=== PATIENT | female | born 1995 | race Caucasian/White ===

== ENCOUNTER 2017-10-17 11:48 | Outpatient (CLI) | payer BC, OTHER ==
[2017-10-17 13:09] VITALS: BP 103/63; PULSE 93; RESP 17; TEMP 98.8
--- NOTE | 2017-10-18 07:08 | P.MSEPDOC ---
Presenting Problems - Arrival Data Date of Arrival on Unit: 10/17/17 Time of Arrival on Unit: 11:48 Mode of Transport: Ambulatory - Complaint OB-Reason for Admission/Chief Complaint: Rule Out PROM Comment: pt reports feeling gush of clear fluid around 0630 this am while walking out to car Medical History - Information : 2 Para: 0 Term: 0 : 0 Abortions: Spontaneous or Elective: 0 Number of Living Children: 0 - Gestational Age Gestational Age by JOSEPH (wks/days): 26 Weeks and 0 Days Review of Systems - Review of Systems Constitutional: No problems Breast: No problems ENT: No problems Cardiovascular: No problems Respiratory: No problems Gastrointestinal: No problems Genitourinary: No problems Musculoskeletal: No problems Neurological: No problems Skin: No problems Vital Signs - Temperature Temperature: 98.8 F Temperature Source: Temporal Artery Scan - Pulse Right Brachial Pulse Rate: 93 Pulse Assessment Method: Automatic Cuff - Respirations Respiratory Rate: 17 Oxygen Delivery Method: Room Air O2 Sat by Pulse Oximetry: 98 - Blood Pressure Right Arm Blood Pressure: 103/63 Blood Pressure Mean: 76 Blood Pressure Source: Automatic Cuff Medical Screen Scoring (Pre) - Cervical Exam Dilation: 0 cm = 0 Membranes: Intact - Uterine Contractions Frequency: N/A Duration: N/A Intensity: N/A - Maternal Vital Signs Maternal Temperature: N/A Maternal Blood Pressure: N/A Signs of Preeclampsia: N/A Maternal Respirations: N/A - Pain Assessment Pain Scale Used: Numeric (1 - 10) Pain Intensity: 0 - Maternal Trauma Maternal Trauma: N/A - Assessment Baseline FHR: 145 Position: N/A Station: N/A - Total Score Total Score (Pre): 0 - Level of Risk Level of Risk: Low (0-5) Physician Notification (Pre) - Physician Notified Physician Notified Date: 10/17/17 Physician Notified Time: 12:32 Physician/Practitioner Notifed:: Dr noguera Spoke With: Dr Noguera New Order Received: Yes (dc home) - Notification Comment Comment: pt dcd home, denies questions, reports + fm, has appt 10/[address] mckay Disposition - Disposition OB Disposition: Discharge to home, Written follow up instructions reviewed Discharge Date: 10/17/17 Discharge Time: 12:40 I agree with the RN Medical Screening Exam: Yes Risk & Benefit of care provided described in d/c instruction: Yes Diagnosis: FALSE LABOR AT OR AFTER 37 COMPLETED WEEKS OF GESTATION
== END 2017-10-17 12:40 | disposition home or self-care (01) ==
LOC: FBPOP 11:48
PROVIDERS: ATTEND Obstetrics & Gynecology
DX: O47.1 False labor at or after 37 completed weeks of gestation (principal); Z3A.26 26 weeks gestation of pregnancy
CPT/HCPCS: 84112; 99213

== ENCOUNTER 2018-01-16 12:03 | Outpatient (CLI) | payer OTHER ==
[2018-01-16 12:55] VITALS: BP 119/74; PULSE 123; RESP 18; TEMP 98
[2018-01-16 13:15] LABS: Appearance,Urine Cloudy (Clear); Bacteria,Urine Rare /hpf; Bilirubin,Urine Negative (Negative); Blood,Urine Negative (Negative); Color,Urine Yellow; Glucose,Urine (UA) Negative (Negative); Ketones,Urine 1+ (Negative); Leukocyte Esterase,Urine Large (Negative); Mucus,Urine Rare /hpf; Nitrite,Urine Negative (Negative); Protein,Urine Trace (Negative); RBC,Urine <1 /hpf (0-5); Specific Gravity,Urine 1.018 (1.001-1.035); Squamous Epithelial Cell,Urine 32 /hpf (0-4); Urobilinogen,Urine <2.0 mg/dL (<2.0); WBC,Urine 10 /hpf (0-5)
--- NOTE | 2018-01-16 20:38 | P.MSEPDOC ---
Presenting Problems - Arrival Data Date of Arrival on Unit: 01/16/18 Time of Arrival on Unit: 12:03 Mode of Transport: Ambulatory - Complaint OB-Reason for Admission/Chief Complaint: Possible Onset of Labor, Rule Out SROM Medical History - Information : 2 Para: 0 Term: 0 : 0 Abortions: Spontaneous or Elective: 0 Number of Living Children: 0 - Gestational Age Gestational Age by JOSEPH (wks/days): 39 Weeks and 0 Days Review of Systems - Review of Systems Constitutional: No problems Breast: No problems ENT: No problems Cardiovascular: No problems Respiratory: No problems Gastrointestinal: No problems Genitourinary: No problems Musculoskeletal: No problems Neurological: No problems Skin: No problems Vital Signs - Temperature Temperature: 98.0 F Temperature Source: Temporal Artery Scan - Pulse Right Brachial Pulse Rate: 123 Pulse Assessment Method: Automatic Cuff - Respirations Respiratory Rate: 18 Oxygen Delivery Method: Room Air - Blood Pressure Right Arm Blood Pressure: 119/74 Blood Pressure Mean: 89 Blood Pressure Source: Automatic Cuff Medical Screen Scoring (Pre) - Cervical Exam Dilation: 1-3 cm = 1 Effacement: More than 50% = 2 Membranes: Intact - Uterine Contractions Frequency: > 5 minutes apart = 1, Scheduled / = 6 Duration: > 40 seconds = 2 Intensity: N/A - Maternal Vital Signs Maternal Temperature: N/A Maternal Blood Pressure: N/A Signs of Preeclampsia: N/A Maternal Respirations: N/A - Pain Assessment Pain Location and Character: Back, Abdomen, Pelvic Pain Scale Used: Numeric (1 - 10) Pain Intensity: 5 Pain Description: *Acute Pain Radiation Location: none Pain Frequency: Intermittent Pain Behavior: Vocalization Pain Aggravating Factors: Activity - Maternal Trauma Maternal Trauma: N/A - Assessment Baseline FHR: 130 Heart Rate - NICHD Category: Category I (Normal) = 0 NST: Reactive Position: N/A Station: N/A - Total Score Total Score (Pre): 12 - Level of Risk Level of Risk: High (10+) Physician Notification (Pre) - Physician Notified Physician Notified Date: 01/16/18 Physician Notified Time: 12:40 Physician/Practitioner Notifed:: Dr. Johnson Spoke With: Dr. Johnson New Order Received: Yes - Notification Comment Comment: send ua, recheck cervix in one hour, if no change may discharge home and follow up on Friday for scheduled section for breech presentation Medical Screen Scoring (Post) - Cervical Exam Dilation: 1-3 cm = 1 Membranes: Intact - Uterine Contractions Frequency: > 5 minutes apart = 1 Duration: > 40 seconds = 2 Intensity: N/A - Maternal Vital Signs Maternal Temperature: N/A Maternal Blood Pressure: N/A Signs of Preeclampsia: N/A Maternal Respirations: N/A - Maternal Trauma Maternal Trauma: N/A - Assessment Heart Rate - NICHD Category: Category I (Normal) = 0 - Total Score Total Score (Post): 4 - Post Treatment Level of Risk Post Treatment Level of Risk: Low (0-5) Disposition - Disposition OB Disposition: Discharge to home, Written follow up instructions reviewed Discharge Date: 01/16/18 Discharge Time: 13:45 I agree with the RN Medical Screening Exam: Yes Risk & Benefit of care provided described in d/c instruction: Yes Diagnosis: FALSE LABOR AT OR AFTER 37 COMPLETED WEEKS OF GESTATION
== END 2018-01-16 13:45 | disposition home or self-care (01) ==
LOC: FBPOP 12:03
PROVIDERS: ATTEND Obstetrics & Gynecology
DX: O47.1 False labor at or after 37 completed weeks of gestation (principal); Z3A.39 39 weeks gestation of pregnancy
CPT/HCPCS: 59025; 84112; 81001; G0463; 99213

== ENCOUNTER → 2018-10-20 | Outpatient (CLI) | payer OTHER ==
[2018-10-20 17:29] LABS: HCT 35.8 % (34.0-46.0); HGB 12.3 gm/dL (11.4-16.0); MCH 29.7 pg (25.0-35.0); MCHC 34.5 g/dL (31.0-37.0); MCV 86.1 fL (80.0-100.0); Mean Platelet Volume 6.8; Platelet Count 302 k/uL (150-450); RBC 4.15 m/uL (3.80-5.40); RDW 13.1 % (11.5-15.5); WBC 7.4 k/uL (3.8-10.6)
[2018-10-20 17:45] LABS: Glucose 83 mg/dL (74-99)
[2018-10-21 05:38] LABS: Toxoplasma Antibody (IgG) <3.0 IU/mL (<7.2); Toxoplasma Antibody (IgM) 4.1 AU/mL (<8.0)
[2018-10-21 05:52] LABS: HIV 1 AB Non-Reactive (Non-Reactive); HIV AB P24 Non-Reactive (Non-Reactive); HIV P24 AG Non-Reactive (Non-Reactive)
--- NOTE | 2018-10-21 07:21 | US ---
EXAMINATION TYPE: Transabdominal DATE OF EXAM: 10/20/2018 4:20 PM COMPARISON: NONE CLINICAL HISTORY: Z36 confirm dates. EXAM PERFORMED: Transabdominal (TA) EXAM MEASUREMENTS: GESTATIONAL AGE / DATING Physician Established: Not yet established Dates by LMP: LMP unsure Dates by First Scan: No previous this is first scan Dates by Current Scan for: (12 weeks/0 days) EDC: 05/04/2019 MATERNAL ANATOMY Uterus: 11.8 x 6.4 x 8.9 cm Right Ovary: 5.1 x 2.5 x 2.1 cm Left Ovary: 3.0 x 2.0 x 1.5 cm Post CDS / Adnexa: wnl Presence of free fluid: No Presence of corpus luteal cyst: Cystic area right ovary measuring 2.6 x 2.9 x 2.4 cm Presence of subchorionic bleed: No GESTATION / SURVEY CRL: 5.3 cm (12 weeks/0 days) Heart Rate: 160 bpm Rhythm: Normal IUP: Viable IUP Nuchal Translucency 10-14wks (normal less than 3mm): 1.5 mm Date of LMP: LMP unknown Beta HcG (if available): Not available at this time Viable IUP with an JOSEPH of 05/04/2019 IMPRESSION: Single viable intrauterine has noted.
== END | disposition home or self-care (01) ==
LOC: RADUSWWP 16:00
PROVIDERS: ATTEND Obstetrics & Gynecology
DX: Z36.9 Encounter for antenatal screening, unspecified (principal); Z34.81 Encounter for supervision of other normal pregnancy, first trimester; Z3A.12 12 weeks gestation of pregnancy
CPT/HCPCS: 76801; 82565; 82947; 85027; 86762; 86777; 86778; 86780; 86850; 86900; 86901; 87340; 87390

== ENCOUNTER 2019-04-29 06:01 | Inpatient (IN) | payer OTHER ==
[2019-04-27 16:21] VITALS: BMI 24.7
--- NOTE | 2019-04-28 19:36 | P.HPOB ---
History of Present Illness H&P Date: 04/28/19 Chief Complaint: Scheduled repeat section This is a 23 y.o. female, 3, para 1, with an estimated date of confinement of 05/04/2019, estimated gestational age of 39-5/7 weeks, who presents for scheduled repeat section. She admits to good move ment and has irregular contractions. Previous section was for breech presentation and she denies vaginal after . labs: GC/Chlamydia/trichomonas-neg HIV-NR Toxoplasma-neg Blood type-O+ Antibody screen-neg Random glucose-83 Hemoglobin-12.3 Hepatitis B surface antigen-NR Rubella-immune Syphilis antibody-NR 1 HR. GTT-109 GBS-neg OB Hx: . Hx of 1 miscarriage and 1 section. 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 ctxs) Genitourinary: Reports pelvic pain, Reports Musculoskeletal: Reports low back pain Integumentary: Denies pruritus, Denies rash Neurological: Denies numbness, Denies weakness Past Medical History Past Medical History: No Reported History History of Any Multi-Drug Resistant Organisms: None Reported Past Surgical History: Section Past Anesthesia/Blood Transfusion Reactions: No Reported Reaction Past Psychological History: No Psychological Hx Reported Smoking Status: Former smoker Past Alcohol Use History: None Reported Past Drug Use History: None Reported - Past Family History Mother Family Medical History: No Reported History Father Family Medical History: Hypertension Medications and Allergies Home Medications Medication Instructions Recorded Confirmed Type Pnv,Calcium 72/Iron/Folic Acid 1 tab PO DAILY 10/17/17 04/29/19 History [ Plus Tablet] Allergies Allergy/AdvReac Type Severity Reaction Status Date / Time No Known Allergies Allergy Verified 04/29/19 06:12 Exam Osteopathic Statement: *. No significant issues noted on an osteopathic structural exam other than those noted in the History and Physical/Consult. HEENT: within normal limits Heart: regular rate and rhythm Lungs: clear to auscultation bilaterally Abd: soft, heart tones: 140s by doppler Cervix: 1cm/70%/0 Extremities: neg. Stevie Results Result Diagrams: 04/29/19 06:15 Assessment and Plan (1) 39 weeks gestation of Current Visit: No Status: Acute Code(s): Z3A.39 - 39 WEEKS GESTATION OF SNOMED Code(s): 33981956 (2) Previous section Current Visit: No Status: Acute Code(s): Z98.891 - HISTORY OF UTERINE SCAR FROM PREVIOUS SURGERY SNOMED Code(s): 974493590 Plan: Proceed with repeat section. I have discussed the risks, benefits, and alternative therapies for the above- mentioned procedure and for both sedation/anesthesia as well as necessary blood products administration, if indicated, as they pertain to this patient. The patient has indicated her understanding and acceptance of the risks and procedures discussed.
[2019-04-29] MEDS ORDERED: LACTATED RINGERS 1,000 ML IV ONE (06:12)
[2019-04-29] MEDS ORDERED: LIDOCAINE 1% 20 ML VIAL (10MG/ML) FOR IV START INTRADERMA PRN (06:12)
[2019-04-29] MEDS ORDERED: CITRIC ACID-SODIUM CITRATE 15 ML CUP PO ONE (06:12)
[2019-04-29 06:29] LABS: Basophils % (A) 0 %; Eosinophils # (A) 0.1 k/uL (0-0.7); Eosinophils % (A) 2 %; HCT 35.8 % (34.0-46.0); Lymphocytes % (A) 24 %; MCH 29.6 pg (25.0-35.0); MCHC 33.4 g/dL (31.0-37.0); MCV 88.7 fL (80.0-100.0); Mean Platelet Volume 6.5; Monocytes # (A) 0.5 k/uL (0-1.0); Monocytes % (A) 7 %; Neutrophils # (A) 5.3 k/uL (1.3-7.7); Neutrophils % (A) 65 %; Platelet Count 374 k/uL (150-450); RBC 4.03 m/uL (3.80-5.40); RDW 12.6 % (11.5-15.5); WBC 8.2 k/uL (3.8-10.6)
[2019-04-29] MEDS: LACTATED RINGERS 1,000 ML IV SCH ×2 (07:09→12:02)
[2019-04-29] MEDS ORDERED: ONDANSETRON 4 MG/2 ML VIAL ONE (07:54)
[2019-04-29] MEDS ORDERED: MORPHINE SULFATE (PF) 0.3 MG/0.3 ML SYR ONE (07:54)
[2019-04-29] MEDS ORDERED: KETOROLAC 30 MG/ML 1 ML VIAL ONE (07:54)
[2019-04-29] MEDS ORDERED: DEXAMETHASONE SOD PHOS (MDV) 100 MG/10 ML VIAL ONE (07:54)
[2019-04-29] MEDS ORDERED: fentaNYL (PF) 50 MCG/ML 2 ML AMP ONE (07:54)
[2019-04-29] MEDS ORDERED: diphenhydrAMINE 50 MG/ML 1 ML VIAL ONE (07:54)
[2019-04-29] MEDS ORDERED: NALBUPHINE 10 MG/ML (1 ML AMP) ONE (07:54)
[2019-04-29] MEDS ORDERED: OXYTOCIN 10 UNIT/ML 1 ML VIAL ONE (07:54)
--- NOTE | 2019-04-29 08:37 | P.OP ---
Date of Procedure: 04/29/19 Preoperative Diagnosis: 1. Intrauterine at 39-2/7 weeks. 2. History of previous section. Postoperative Diagnosis: Same Procedure(s) Performed: Repeat low transverse section Anesthesia: spinal (Duramorph) Surgeon: Smiley Johnson Caddymaster #1: José Antonio Noguera Estimated Blood Loss (ml): 600 Pathology: none sent Condition: stable Disposition: floor Indications for Procedure: This is a 23-year-old female 3 para 1 at 39-2/7 weeks who presented for scheduled repeat section. She declines vaginal after . Operative Findings: A viable female infant is noted with scores of 7 at 1 minute and 9 at 5 minutes and infant weight of 6 lbs. 12 oz. Nuchal cord times one was noted. Normal uterus tubes and ovaries are noted. Description of Procedure: The patient is taken to the operating room where she is placed in the dorsal supine position with leftward tilt after spinal Duramorph anesthesia is given. She is prepped and draped in the normal sterile fashion. Skin was tested and found to be adequately anesthetized. A Pfannenstiel skin incision was made with a scalpel through the previous laparotomy scar removing the old keloid scar. A second knife was used to carry the incision down to the underlying layer of fascia. The fascia was nicked in the midline with a scalpel and then extended laterally bilaterally with Ornelas scissors. The anterior lip of the fascia was grasped with 2 Cailin clamps and then dissected off the underlying rectus muscle in the midline with Ornelas scissors. The inferior aspect of the fascial incision was grasped with 2 Cailin clamps and dissected off the underlying rectus muscle and the midline with Ornelas scissors. Next the peritoneum layer was tented up with 2 hemostats and then entered sharply with the scalpel. The incision is extended superiorly and inferiorly with Metzenbaum scissors. Next a DeLee retractor is placed. The vesicouterine peritoneum is entered sharply with Metzenbaum scissors and extended laterally bilaterally with Metzenbaum scissors and then the bladder flap is pushed inferiorly. The lower uterine segment is incised in transverse fashion with the scalpel and then bluntly entered with a hemostat. Clear fluid is noted. The incision was then extended laterally bilaterally with 2 fingers. Next the infant's head is delivered through the incision. Nose and mouth are bulb suctioned. Nuchal cord times one was reduced around the 's head. The remainder of the infant is easily delivered and placed on mother's abdomen. Cord is clamped and cut. Infant is taken to warmer by nursing staff. Uterine fundus is gently massaged and placenta is delivered manually. Uterus is exteriorized and cleared of all clots and debris. Uterine incision is closed with 0 Vicryl suture in a running locked fashion. A second layer of 0 Vicryl suture is used in a running fashion for hemostasis. Once adequate hemostasis as assured, the vesicouterine peritoneum is reapproximated with 2-0 Vicryl suture in a running fashion. Posterior cul-de-sac is suctioned of all clots and debris. Uterus is returned to the abdomen. Incision is noted to be hemostatic. Peritoneal layer is closed with 0 Vicryl suture in a running fashion. Muscle layer is reapproximated with 0 Vicryl suture in interrupted fashion. Fascia layer is then closed with 0 PDS suture with 2 sutures meeting in the midline and the knots buried in either side and in the midline. The subcutaneous tissue was then closed with 2-0 Vicryl suture. Skin layer was then closed with walter. All sponge and needle counts are correct. The patient is taken to recovery room in stable condition.
[2019-04-29] MEDS ORDERED: diphenhydrAMINE 50 MG CAP PO PRN (09:22)
[2019-04-29] MEDS ORDERED: LANOLIN CREAM 5 GM TUBE TOPICAL PRN (09:22)
[2019-04-29] MEDS ORDERED: diphenhydrAMINE 25 MG CAP PO PRN (09:22)
[2019-04-29] MEDS ORDERED: diphenhydrAMINE 50 MG/ML 1 ML VIAL IVP PRN ×2 (09:22)
[2019-04-29] MEDS ORDERED: METOCLOPRAMIDE 5 MG/ML 2 ML VIAL IVP PRN (09:22)
[2019-04-29] MEDS ORDERED: ONDANSETRON 4 MG/2 ML VIAL IVP PRN (09:22)
[2019-04-29] MEDS ORDERED: ZOLPIDEM 5 MG TAB PO PRN (09:22)
[2019-04-29] MEDS ORDERED: ACETAMINOPHEN TAB 325 MG TAB PO PRN (09:22)
[2019-04-29] MEDS ORDERED: NALOXONE 0.4 MG/ML 1 ML VIAL IV PRN (09:22)
[2019-04-29] MEDS ORDERED: OXYTOCIN 20 UNITS/1000 ML NS 1,000 ML IV SCH (09:22)
[2019-04-29] MEDS ORDERED: SIMETHICONE 80 MG CHEWABLE PO PRN (09:22)
[2019-04-29] MEDS: KETOROLAC 30 MG/ML 1 ML VIAL IVP PRN (15:28)
[2019-04-29] MEDS: SENNOSIDES-DOCUSATE SODIUM 1 EACH TAB PO SCH (19:36)
[2019-04-30] MEDS: KETOROLAC 30 MG/ML 1 ML VIAL IVP PRN (02:41)
[2019-04-30 07:11] LABS: Basophils % (A) 0 %; Eosinophils % (A) 0 %; HCT 28.7 % (34.0-46.0); Lymphocytes # (A) 2.1 k/uL (1.0-4.8); Lymphocytes % (A) 17 %; MCH 30.1 pg (25.0-35.0); MCHC 33.7 g/dL (31.0-37.0); MCV 89.4 fL (80.0-100.0); Mean Platelet Volume 7.1; Monocytes # (A) 1.2 k/uL (0-1.0); Monocytes % (A) 10 %; Neutrophils # (A) 8.9 k/uL (1.3-7.7); Neutrophils % (A) 71 %; Platelet Count 312 k/uL (150-450); RBC 3.21 m/uL (3.80-5.40); RDW 12.8 % (11.5-15.5); WBC 12.5 k/uL (3.8-10.6)
--- NOTE | 2019-04-30 07:11 | P.PNOBGPC ---
Subjective - Subjective Principal diagnosis: Status post repeat section postoperative day #1 Interval history: Patient is doing well. She is passing flatus but no bowel movement yet. She is tolerating regular diet. Her pain is fairly well controlled. She is breast- feeding. Patient reports: Reports appetite normal, Reports voiding normally, Reports pain well controlled, Reports ambulating normally : doing well, nursing well Objective - Vital Signs Latest vital signs: Vital Signs Temp Pulse Resp BP Pulse Ox 04/30/19 04:00 97 18 106/62 04/29/19 23:05 97.7 F 74 18 94/59 99 04/29/19 20:00 98.1 F 93 18 104/64 99 04/29/19 16:00 97.8 F 92 16 103/71 99 04/29/19 12:00 98.2 F 84 16 109/67 04/29/19 10:40 96.7 F L 82 16 100/66 100 04/29/19 10:10 69 16 96/63 100 04/29/19 09:40 97.5 F L 86 16 99/61 100 04/29/19 09:25 86 16 117/68 04/29/19 09:10 78 16 105/65 100 04/29/19 08:55 98 16 108/56 99 04/29/19 08:40 96.3 F L 100 16 107/71 99 Intake and Output 04/29/19 04/30/19 04/30/19 22:59 06:59 14:59 Output Total 900 2100 Balance -900 -2100 Output: Urine 900 2100 Uretheral (Mortensen) 500 Other: Voiding Method Toilet # Voids 1 1 - Exam Extremities: Present: normal. Absent: tenderness Abdomen: Present: normal appearance, soft (Positive bowel sounds 4). Absent: distention, tenderness Incision: Present: normal, dry, intact. Absent: erythematous Uterus: Present: normal, firm. Absent: tenderness Assessment and Plan Assessment: Status post repeat low transverse section postoperative day #1 (1) 39 weeks gestation of Current Visit: No Status: Acute Code(s): Z3A.39 - 39 WEEKS GESTATION OF SNOMED Code(s): 34781523 (2) Previous section Current Visit: No Status: Acute Code(s): Z98.891 - HISTORY OF UTERINE SCAR FROM PREVIOUS SURGERY SNOMED Code(s): 336552292 Plan: Continue postoperative care. Will switch to oral pain medication. Anticipate discharge home tomorrow.
[2019-04-30 07:15] LABS: HGB 9.7 gm/dL (11.4-16.0)
[2019-04-30] MEDS: SENNOSIDES-DOCUSATE SODIUM 1 EACH TAB PO SCH ×2 (08:03→19:42)
[2019-04-30] MEDS: HYDROcodone/APAP 5-325MG 1 EACH TAB PO PRN (11:32)
[2019-04-30] MEDS: IBUPROFEN 600 MG TAB PO PRN ×2 (13:57→19:42)
--- NOTE | 2019-04-30 15:13 | P.PN ---
Progress Note - Text Progress Note Date: 04/30/19 Patient was seen and examined at bedside at 6:30 AM. She is postop day 1 from with spinal with Duramorph. Pain score 5/10 today. She does report some mild itching. Denies nausea and vomiting. She has been out of bed. Denies motor or sensory deficits.
[2019-04-30] MEDS: HYDROcodone/APAP 7.5-325MG 1 EACH TAB PO PRN ×2 (15:48→23:18)
--- NOTE | 2019-04-30 17:57 | P.PN ---
Progress Note - Text Progress Note Date: 04/30/19 Pt seen at 6:30 am. Patient without complaints. Pain controlled. Denies headache. Ambulating without paresthesia or weakness. Pruritis controlled. VSS Back spinal site c/d A/P POD #1 s/p with spinal duramorph - doing well
[2019-05-01] MEDS: IBUPROFEN 600 MG TAB PO PRN (02:35)
--- NOTE | 2019-05-01 06:09 | P.PNOBGPC ---
Subjective - Subjective Patient reports: Reports appetite normal, Reports voiding normally, Reports pain well controlled, Reports ambulating normally : doing well Objective - Vital Signs Latest vital signs: Vital Signs Temp Pulse Resp BP Pulse Ox 04/30/19 23:42 97.7 F 92 16 112/67 04/30/19 15:57 97.5 F L 88 18 101/66 99 04/30/19 08:00 97.9 F 98 16 95/57 98 - Exam Lungs: bilateral: normal Chest: Normal S1, Normal S2 Extremities: Present: normal Abdomen: Present: normal appearance, soft. Absent: distention, tenderness Incision: Present: normal, dry, intact Uterus: Present: normal, firm - Labs Labs: Abnormal Lab Results - Last 24 Hours (Table) 04/30/19 Range/Units 06:36 WBC 12.5 H (3.8-10.6) k/uL RBC 3.21 L (3.80-5.40) m/uL Hgb 9.7 L D (11.4-16.0) gm/dL Hct 28.7 L (34.0-46.0) % Neutrophils # 8.9 H (1.3-7.7) k/uL Monocytes # 1.2 H (0-1.0) k/uL Assessment and Plan Assessment: Postoperative day #2. Patient is resting without complaints and wishes to go home. Vital signs are stable she is afebrile. Her incision is intact and dry. Patient's tolerating regular diet, ambulating, urinating without difficulty. My impression is this is a normal postoperative course. Plan is to continue routine postoperative care discharge home today. (1) Previous delivery, delivered Current Visit: Yes Status: Acute Code(s): O34.219 - MATERNAL CARE FOR UNSP TYPE SCAR FROM PREVIOUS DEL SNOMED Code(s): 107038968
--- NOTE | 2019-05-01 06:13 | P.DS ---
Providers Date of admission: 04/29/19 06:01 Expected date of discharge: 05/01/19 Attending physician: Smiley Johnson Primary care physician: Smiley Johnson - Discharge Diagnosis(es) (1) Previous delivery, delivered Current Visit: Yes Status: Acute Hospital Course: Please see dictated H&P for intimate details of this patient's admission. Brief summary is a pleasant 23-year-old 3 para 1 female 39-2/7 weeks gestation admitted to labor and delivery for elective repeat section. Patient is admitted undergoes repeat low transverse section for a viable female . Please see dictated delivery note. By postoperative #2 patient's felt be stable for discharge home follow up with Dr. Johnson in 1 week. Procedures: Repeat low transverse section Patient Condition at Discharge: Good Plan - Discharge Summary Discharge Rx Participant: Yes New Discharge Prescriptions: New Ibuprofen [Motrin] 600 mg PO Q6HR PRN #60 tab PRN Reason: Mild Pain Or Fever >= 100.5 HYDROcodone/APAP 5-325MG [[place] 5-325] 1 each PO Q4HR PRN #30 tab PRN Reason: Moderate Pain Continue Pnv,Calcium 72/Iron/Folic Acid [ Plus Tablet] 1 tab PO DAILY Discharge Medication List Pnv,Calcium 72/Iron/Folic Acid [ Plus Tablet] 1 tab PO DAILY 10/17/17 [History] HYDROcodone/APAP 5-325MG [[place] 5-325] 1 each PO Q4HR PRN #30 tab 04/30/19 [Rx] Ibuprofen [Motrin] 600 mg PO Q6HR PRN #60 tab 04/30/19 [Rx] Follow up Appointment(s)/Referral(s): Smiley Johnson DO [Primary Care Provider] - 05/07/19 9:00 am (Please see Dr. Johnson on June 15 at 11:30 for a visit.) Patient Instructions/Handouts: (DC) Activity/Diet/Wound Care/Special Instructions: Instructions 1. Do not begin any exercise program for 3 weeks. 2. Do not resume sexual relations for 3 weeks or longer if uncomfortable. 3. You may take tub baths or showers at any time. 4. You may use tampons if desired after 3 weeks. 5. Keep the area of episiotomy (stitches) clean and dry. 6. If you are not nursing, wear a good fitting, supportive bra during the day and limit fluid intake for at least 1 week to prevent breast engorgement. 7. Call the office, [phone], within the next week to make appointment for your 6 week checkup if it has not already been made. 8. Report any of the following occurrences to the doctor promptly: a. Heavy, excessive bleeding b. Chills, fever c. Burning or frequency of urination d. Pain or redness and breasts if nursing e. Increasing pain or swelling in episiotomy (stitches). In addition to the above instructions, the following additional should be followed: 1. No heavy lifting or straining (exercising) until after 6 week checkup. 2. Keep abdominal incision clean and dry: You may wear a dressing if more comfortable. 3. Make office appointment for 10 days after going home or as instructed by her doctor. Discharge Disposition: HOME SELF-CARE
[2019-05-01] MEDS: SENNOSIDES-DOCUSATE SODIUM 1 EACH TAB PO SCH (08:16)
[2019-05-01 08:24] VITALS: BP 94/68; PULSE 70; RESP 17; TEMP 98
[2019-05-01] MEDS: HYDROcodone/APAP 5-325MG 1 EACH TAB PO PRN (10:16)
== END 2019-05-01 11:29 | disposition home or self-care (01) | DRG 788 ==
LOC: 4FBP 06:01
PROVIDERS: ADMIT Obstetrics & Gynecology; ATTEND Obstetrics & Gynecology
PROC: 10D00Z1 Extraction of Products of Conception, Low, Open Approach (ICD-10-PCS; principal; 2019-04-29 08:08)
DX: O34.211 Maternal care for low transverse scar from previous cesarean delivery (principal); O69.81X0 Labor and delivery complicated by cord around neck, without compression, not applicable or unspecified; N85.8 Other specified noninflammatory disorders of uterus; Z3A.39 39 weeks gestation of pregnancy; Z37.0 Single live birth; L29.9 Pruritus, unspecified; Z79.899 Other long term (current) drug therapy; Z87.891 Personal history of nicotine dependence; Z82.49 Family history of ischemic heart disease and other diseases of the circulatory system
CPT/HCPCS: 85025; 86850; 86900; 86901

== ENCOUNTER → 2019-06-22 | Outpatient (CLI) | payer OTHER | END | disposition home or self-care (01) | LOC: LABWHC1 14:17 | PROVIDERS: ATTEND Obstetrics & Gynecology | DX: N91.2 Amenorrhea, unspecified (principal) | CPT/HCPCS: 36415; 84702 ==